=== PATIENT | female | born 1955 | race Caucasian/White ===

== ENCOUNTER → 2017-02-18 | Outpatient (CLI) | payer BC ==
[~2017-02-18] MED LIST: ACT30 PO; ASCA500 PO; ASPEC325 PO; ATOR10TA82 PO; CALC500C70 PO; CLX20 PO; GLC/500 PO; HYDRALAZINE PO; LISI-787 PO; LISI20TA PO; METO100T44 PO; MULT-190 PO; MULT-506 PO; SYN50 PO
--- NOTE | 2017-02-18 16:39 | MAMMOGRAPHY REPORT ---
BILATERAL DIGITAL SCREENING MAMMOGRAM WITH CAD: 02/18/2017 CLINICAL HISTORY: Routine screening. Patient has no complaints. TECHNIQUE: Bilateral CC and MLO views were obtained. Current study was also evaluated with a Comput er Aided Detection (CAD) system. COMPARISON: Comparison is made to exams dated: 02/13/2016 mammogram, 02/09/2015 mammogram, 02/08/2014 mammogram, 01/04/2013 mammogram, 01/03/2012 mammogram, and 01/02/2011 mammogram - [facility]. BREAST COMPOSITION: The tissue of both breasts is almost entirely fatty. FINDINGS: There are stable, benign appearing calcifications in both breasts. No suspicious mass, architectural distortion or cluster of microcalcifications is seen. IMPRESSION: ACR BI-RADS CATEGORY 2: BENIGN There is no mammographic evidence of malignancy. A 1 year screening mammogram is recommended. The p atient will receive written notification of the results. Approximately 10% of breast cancers are not detected with mammography. A negative mammographic repor t should not delay biopsy if a clinically suggestive mass is present. Marcia Gagnon M.D. ay/:02/18/2017 16:26:48 Market Maker: Hailey ZAMBRANO(R)(M), [facility] letter sent: Normal 1/2 BI-RADS Code: ACR BI-RADS Category 2: Benign
== END | disposition home or self-care (01) ==
LOC: C.MAMM 16:12
PROVIDERS: ATTEND Internal Medicine Adolescent Medicine
DX: Z12.31 Encounter for screening mammogram for malignant neoplasm of breast (principal)

== ENCOUNTER 2017-03-04 15:15 | Emergency (ER) | payer BC ==
[~2017-03-04] VITALS: Ht 157.5 cm; Wt 91.3 kg
[~2017-03-04 15:15] MED LIST changes: -ASCA500 PO; -CALC500C70 PO; -GLC/500 PO; -HYDRALAZINE PO; -LISI-787 PO; -MULT-190 PO
[2017-03-04 15:23] VITALS: TEMP 37.3; Ht 157.5 cm; Wt 91.3 kg
[2017-03-04] MEDS ORDERED: SODIUM CHLORIDE 0.9% 1000ML 1,000 ML IV STA (15:48)
[2017-03-04 16:07] LABS: BASO % 0.2 %; BASO ABS # 0.02 K/uL (0-0.2); COMPLETE YES; EOS % 2.8 %; HEMATOCRIT 40.4 % (37-47); IG% 0.2 %; LYMPH ABS # 1.94 K/uL (1.2-3.4); MEAN CELL VOLUME 87.8 fL (80-100); MEAN CORPUSCULAR HEMOGLOBIN 29.8 pg (25-34); MEAN CORPUSCULAR HGB CONC 33.9 g/dl (32-36); MEAN PLATELET VOLUME 9.5 fL (7.4-10.4); MONO % 8.7 %; NEUT % 66.1 %; PLATELET COUNT 187 K/uL (130-400); WHITE BLOOD COUNT 8.81 K/uL (4.8-10.8)
--- NOTE | 2017-03-04 16:17 | DIAGNOSTIC IMAGING REPORT ---
CHEST ONE VIEW PORTABLE CLINICAL HISTORY: Altered mental status. Weakness. COMPARISON STUDY: 08/19/2009 FINDINGS: The cardiac and mediastinal contours are normal. There is no evidence of focal pulmonary consolidation. There is no evidence of failure. No pleural effusions are visualized.[ IMPRESSION: No active disease in the chest. Electronically signed by: Marvin Dozier M.D. 03/04/2017 4:15 PM Dictated Date/Time: 03/04/2017 4:09 PM
[2017-03-04 16:32] LABS: PARTIAL THROMBOPLASTIN RATIO 1.3; PROTHROMBIN TIME (PATIENT) 10.7 SECONDS (9.0-12.0)
--- NOTE | 2017-03-04 16:55 | DIAGNOSTIC IMAGING REPORT ---
CT SCAN OF THE BRAIN WITHOUT IV CONTRAST CLINICAL HISTORY: Change in mental status. Weakness. Syncope. COMPARISON STUDY: No priors. TECHNIQUE: Unenhanced axial CT scan of the brain is performed from the vertex to the skull base. Automated dose control exposure was utilized. FINDINGS: Brain parenchyma: There is significant edema identified in the left hemisphere centered in the left temporal lobe. The overlying cortex appears preserved. This effaces the overlying cortical sulci. No midline shift is apparent. There is no hemorrhage. No additional foci of abnormality are identified. No extra-axial fluid collection is seen. Ventricles, sulci, cisterns: See above. Intracranial vasculature: There is atherosclerotic calcification of the cavernous carotid arteries. Calvarium: A tiny osteoma arises from the right frontal calvarium. No destructive calvarial lesion is seen. Sinuses and mastoids: The visualized paranasal sinuses are clear. The mastoid air cells are well pneumatized. Orbits: The bony orbits are grossly intact. IMPRESSION: 1. There is a large region of edema centered in the left temporal lobe with mild surrounding mass effect. Although this could represent subacute ischemia, the overlying cortex appears preserved and the appearance is more concerning for an underlying mass lesion. Correlation with a contrast-enhanced MRI of the brain is recommended for further assessment. 2. There is no hemorrhage or midline shift. No additional foci of abnormality are identified. Electronically signed by: Juan Sanchez M.D. 03/04/2017 4:52 PM Dictated Date/Time: 03/04/2017 4:48 PM
[2017-03-04 16:56] LABS: ALKALINE PHOSPHATASE 126 U/L (45-117); ALT/SGPT 29 U/L (12-78); AST/SGOT 18 U/L (15-37); BLOOD UREA NITROGEN 21 mg/dl (7-18); BUN/CREATININE RATIO 19.4 (10-20); CARBON DIOXIDE 35 mmol/L (21-32); CHLORIDE 91 mmol/L (98-107); CKMB/CK RATIO 1.4 (0-3.0); GLUCOSE 115 mg/dl (70-99); MAGNESIUM 2.4 mg/dl (1.8-2.4); POTASSIUM 3.3 mmol/L (3.5-5.1); SODIUM 132 mmol/L (136-145)
[2017-03-04] MEDS ORDERED: SYN50 PO (16:58)
[2017-03-04] MEDS ORDERED: LISI-787 PO (16:58)
[2017-03-04] MEDS ORDERED: CALC500C70 PO (16:59)
[2017-03-04] MEDS ORDERED: MULT-190 PO (16:59)
[2017-03-04] MEDS ORDERED: ASCA500 PO (16:59)
[2017-03-04] MEDS ORDERED: GLC/500 PO (17:01)
[2017-03-04] MEDS ORDERED: HYDRALAZINE PO (17:01)
--- NOTE | 2017-03-04 18:00 | DIAGNOSTIC IMAGING REPORT ---
CT SCAN OF THE PARANASAL SINUSES CLINICAL HISTORY: Head pressure. COMPARISON STUDY: CT of the brain performed concurrently on 03/04/2017. TECHNIQUE: High-resolution CT scan of the paranasal sinuses is performed. Images are reviewed in the axial, sagittal, and coronal planes. IV contrast was not administered for this examination. FINDINGS: Maxillary antra: There are bony defects identified within the medial wall of the maxillary antra bilaterally, which could be on a congenital postoperative basis. Both maxillary antra are clear. Incomplete bony septations are present within the bilateral maxillary antra anteriorly. Anterior ethmoid sinuses: Clear. Posterior ethmoid sinuses: Trace mucosal thickening is seen on the right. Clear on the left. Sphenoid sinuses: Clear. Frontal sinuses: Trace mucosal thickening is seen bilaterally. Ostiomeatal complexes: Patent bilaterally. Frontoethmoidal and sphenoethmoidal recesses: Patent bilaterally. Carotid arteries: The carotid arteries are protuberant but covered and without septal attachments. Ethmoid roofs: The ethmoid roofs are symmetric. Nasal turbinates: Normal in appearance. Nasal septum: There is mild rightward deviation of the bony nasal septum. Optic nerves: Covered. Orbits: There is contour deformity of the medial wall of the right orbit, possibly related to remote lamina papyracea fracture. The bony orbits are otherwise intact. Orbital contents are normal in appearance. Calvarium: The imaged calvarium is normal in appearance Mastoid air cells: Well pneumatized. Brain parenchyma: There is edema identified within the left temporal lobe. IMPRESSION: 1. No significant paranasal sinus disease. See above. 2. There is edema identified within the left temporal lobe. See report of CT scan of the brain performed concurrently for detailed intracranial findings. Electronically signed by: Juan Sanchez M.D. 03/04/2017 5:58 PM Dictated Date/Time: 03/04/2017 5:54 PM
[2017-03-04] MEDS ORDERED: LORAZEPAM 2 MG/ML 1 ML VIAL IV STA (18:32)
--- NOTE | 2017-03-04 20:57 | DIAGNOSTIC IMAGING REPORT ---
MRI OF THE BRAIN COMBO CLINICAL HISTORY: Abnormal CT scan. Concern for left temporal lobe mass. Change in mental status. Syncope. COMPARISON STUDY: CT of the brain dated 03/04/2017. TECHNIQUE: MRI of the brain was performed utilizing various T1 and T2-weighted sequences in the axial, sagittal, and coronal planes. Contrast-enhanced sequences were acquired following the administration of 9 cc of Gadavist. The examination is degraded by motion artifact. FINDINGS: Brain parenchyma: There is a 2.3 x 3.4 x 2.0 cm complex mass lesion containing cystic components identified within the medial right temporal lobe. This demonstrates a thick peripheral rim of enhancement, and there is significant stranding vasogenic edema. No restricted diffusion is identified within this lesion. There is no [id number] midline shift. Edema effaces the adjacent cortical sulci. No additional enhancing lesions are identified. There is no hemorrhage. There is no restricted diffusion typical for acute ischemia. There is minimal subcortical and periventricular microangiopathic disease. No extra-axial fluid collection is seen. The cerebellar tonsils are normal in configuration. Ventricles, sulci, and cisterns: Normal in configuration. See above. Pituitary and sella: Unremarkable. Intracranial vasculature: Normal flow voids are maintained at the skull base. Orbits: The bony orbits are grossly intact. Orbital contents are normal in appearance. Sinuses and mastoids: Clear. Calvarium: Unremarkable. Cervical cord: Partially visualized cervical spinal cord is normal in morphology and signal intensity. IMPRESSION: 1. MRI confirms the presence of a peripherally enhancing mass lesion identified in the medial left temporal lobe with surrounding vasogenic edema. This corresponds to the abnormality seen by CT, an the appearance is highly concerning for neoplasm. 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 Abscess is considered unlikely given the lack of restricted diffusion. 2. No additional enhancing lesions are identified. 3. There is no hemorrhage or evidence of acute ischemia. Electronically signed by: Juan Sanchez M.D. 03/04/2017 8:55 PM Dictated Date/Time: 03/04/2017 8:48 PM
[2017-03-04] MEDS ORDERED: GADAVIST IV PRN (21:00)
[2017-03-04 21:43] VITALS: BP 151/81; PULSE 69; O2SAT 98
--- NOTE | 2017-03-04 22:31 | EMERGENCY ROOM VISIT NOTE ---
History Report prepared by Ratna: Phil Nunez Under the Supervision of: Dr. Que Christine D.O. 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 Pt called for help from staff, had near syncopal episiode. Pt currently having none of these symptoms at this time besides a headache. PMH: DM, HTN, heart condition (patient unsure) Family: Stroke History of Present Illness The patient is a 61 year old female who presents to the Emergency Room with complaints of persistent confusion beginning about 1 hour ago. She notes she started feeling "odd" which is unusual for her. She notes feeling somewhat nauseated earlier today. She had a sinus infection over a week ago, and has been taking Mucinex. She took 2 Mucinex this morning around 0600, and 2 at noon , which seem to be working, and she reports keeping up with her fluids. The patient had been given Zithromax for her recent sinus infection which she finished last week. She notes she is still having some sinus discomfort. She takes medication for diabetes and hypertension . Source of History: patient Onset: about 1 hour ago Position: head Quality: other (confusion) Timing: other (persistent) Associated Symptoms: + nausea Note: The patient notes having some sinus discomfort. Review of Systems See HPI for pertinent positives & negatives. A total of 10 systems reviewed and were otherwise negative. Past Medical & Surgical Medical Problems: (1) History of CHF (congestive heart failure) (2) History of diabetes mellitus (3) History of hypertension Family History Diabetes mellitus Social History Smoking Status: Never Smoker Marital Status: Occupation Status: employed Current/Historical Medications Scheduled Ascorbic Acid (Vitamin C), 500 MG PO DAILY Aspirin Enteric Coated (Ecotrin Or Generic *), 325 MG PO DAILY Atorvastatin (Lipitor), 10 MG PO DAILY Calcium/Vitamin D (Os-Clifford 500 Plus D), 1 TAB PO DAILY Citalopram (Celexa *), 20 MG PO DAILY Levothyroxine Sodium (Synthroid), 50 MCG PO QAM Lisinopril/Hctz (Zestoretic 20MG/12.5MG), 1 TAB PO DAILY Metformin Hcl (Glucophage), 1,000 MG PO DAILY Metoprolol Succ (Toprol Xl) (Toprol-Xl ), 100 MG PO DAILY Ocuvite Preservision (Ocuvite Preservision), 1 TAB PO DAILY [Hydralazine], 1 TAB PO TID Allergies Coded Allergies: Cefaclor (Unverified Allergy, Unknown, DIARRHEA, 03/04/17) Physical Exam Vital Signs Date Time Temp Pulse Resp B/P Pulse Ox O2 Delivery O2 Flow Rate FiO2 03/04/17 21:43 69 18 151/81 98 Room Air 03/04/17 19:30 60 18 97 Room Air 03/04/17 19:07 158/81 03/04/17 19:00 59 15 94 03/04/17 17:45 61 20 158/81 97 Room Air 03/04/17 16:09 61 03/04/17 15:23 37.3 66 18 177/91 99 Room Air Physical Exam CONSTITUTIONAL/VITAL SIGNS: Reviewed / noted above. GENERAL: Non-toxic in appearance. INTEGUMENTARY: Warm, dry, and [place]. HEAD: Normocephalic. EYES: without scleral icterus or trauma. ENT/OROPHARYNX: clear and moist. LYMPHADENOPATHY/NECK: Is supple without lymphadenopathy or meningismus. RESPIRATORY: Lungs clear and equal. CARDIOVASCULAR: Regular rate and rhythm. GI/ABDOMEN: Soft and nontender. No organomegaly or pulsatile mass. No rebound or guarding. Normal bowel sounds. EXTREMITIES: Warm and well perfused. BACK: No CVA tenderness. NEUROLOGICAL: Intact without focal deficits. PSYCHIATRIC: normal affect. MUSCULOSKELETAL: Normally developed with good muscle tone. Medical Decision & Procedures ER Provider Diagnostic Interpretation: Radiology results as stated below per my review and radiologist interpretation: CT SCAN OF THE BRAIN WITHOUT IV CONTRAST FINDINGS: Brain parenchyma: There is significant edema identified in the left hemisphere centered in the left temporal lobe. The overlying cortex appears preserved. This effaces the overlying cortical sulci. No midline shift is apparent. There is no hemorrhage. No additional foci of abnormality are identified. No extra-axial fluid collection is seen. Ventricles, sulci, cisterns: See above. Intracranial vasculature: There is atherosclerotic calcification of the cavernous carotid arteries. Calvarium: A tiny osteoma arises from the right frontal calvarium. No destructive calvarial lesion is seen. Sinuses and mastoids: The visualized paranasal sinuses are clear. The mastoid air cells are well pneumatized. Orbits: The bony orbits are grossly intact. IMPRESSION: 1. There is a large region of edema centered in the left temporal lobe with mild surrounding mass effect. Although this could represent subacute ischemia, the overlying cortex appears preserved and the appearance is more concerning for an underlying mass lesion. Correlation with a contrast-enhanced MRI of the brain is recommended for further assessment. 2. There is no hemorrhage or midline shift. No additional foci of abnormality are identified. Electronically signed by: Juan Sanchez M.D. 03/04/2017 4:52 PM Dictated Date/Time: 03/04/2017 4:[address] SCAN OF THE PARANASAL SINUSES FINDINGS: Maxillary antra: There are bony defects identified within the medial wall of the maxillary antra bilaterally, which could be on a congenital postoperative basis. Both maxillary antra are clear. Incomplete bony septations are present within the bilateral maxillary antra anteriorly. Anterior ethmoid sinuses: Clear. Posterior ethmoid sinuses: Trace mucosal thickening is seen on the right. Clear on the left. Sphenoid sinuses: Clear. Frontal sinuses: Trace mucosal thickening is seen bilaterally. Ostiomeatal complexes: Patent bilaterally. Frontoethmoidal and sphenoethmoidal recesses: Patent bilaterally. Carotid arteries: The carotid arteries are protuberant but covered and without septal attachments. Ethmoid roofs: The ethmoid roofs are symmetric. Nasal turbinates: Normal in appearance. Nasal septum: There is mild rightward deviation of the bony nasal septum. Optic nerves: Covered. Orbits: There is contour deformity of the medial wall of the right orbit, possibly related to remote lamina papyracea fracture. The bony orbits are otherwise intact. Orbital contents are normal in appearance. Calvarium: The imaged calvarium is normal in appearance Mastoid air cells: Well pneumatized. Brain parenchyma: There is edema identified within the left temporal lobe. IMPRESSION: 1. No significant paranasal sinus disease. See above. 2. There is edema identified within the left temporal lobe. See report of CT scan of the brain performed concurrently for detailed intracranial findings. Electronically signed by: Juan Sanchez M.D. 03/04/2017 5:58 PM Dictated Date/Time: 03/04/2017 5:54 PM CHEST ONE VIEW PORTABLE FINDINGS: The cardiac and mediastinal contours are normal. There is no evidence of focal pulmonary consolidation. There is no evidence of failure. No pleural effusions are visualized. IMPRESSION: No active disease in the chest. Electronically signed by: Marvin Dozier M.D. 03/04/2017 4:15 PM Dictated Date/Time: 03/04/2017 4:09 PM MRI OF THE BRAIN COMBO FINDINGS: Brain parenchyma: There is a 2.3 x 3.4 x 2.0 cm complex mass lesion containing cystic components identified within the medial right temporal lobe. This demonstrates a thick peripheral rim of enhancement, and there is significant stranding vasogenic edema. No restricted diffusion is identified within this lesion. There is no [id number]-[id number] midline shift. Edema effaces the adjacent cortical sulci. No additional enhancing lesions are identified. There is no hemorrhage. There is no restricted diffusion typical for acute ischemia. There is minimal subcortical and periventricular microangiopathic disease. No extra-axial fluid collection is seen. The cerebellar tonsils are normal in configuration. Ventricles, sulci, and cisterns: Normal in configuration. See above. Pituitary and sella: Unremarkable. Intracranial vasculature: Normal flow voids are maintained at the skull base. Orbits: The bony orbits are grossly intact. Orbital contents are normal in appearance. Sinuses and mastoids: Clear. Calvarium: Unremarkable. Cervical cord: Partially visualized cervical spinal cord is normal in morphology and signal intensity. IMPRESSION: 1. MRI confirms the presence of a peripherally enhancing mass lesion identified in the medial left temporal lobe with surrounding vasogenic edema. This corresponds to the abnormality seen by CT, an the appearance is highly concerning for neoplasm. 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 Abscess is considered unlikely given the lack of restricted diffusion. 2. No additional enhancing lesions are identified. 3. There is no hemorrhage or evidence of acute ischemia. Electronically signed by: Juan Sanchez M.D. 03/04/2017 8:55 PM Dictated Date/Time: 03/04/2017 8:48 PM Laboratory Results 03/04/17 15:56 Red Blood Count 4.60, Mean Corpuscular Volume 87.8, Mean Corpuscular Hemoglobin 29.8, Mean Corpuscular Hemoglobin Concent 33.9, Mean Platelet Volume 9.5, Neutrophils (%) (Auto) 66.1, Lymphocytes (%) (Auto) 22.0, Monocytes (%) (Auto) 8.7, Eosinophils (%) (Auto) 2.8, Basophils (%) (Auto) 0.2, Neutrophils # (Auto) 5.81, Lymphocytes # (Auto) 1.94, Monocytes # (Auto) 0.77, Eosinophils # (Auto) 0.25, Basophils # (Auto) 0.02 03/04/17 15:56 Test 03/04/17 15:56 White Blood Count 8.81 K/uL (4.8-10.8) Red Blood Count 4.60 M/uL (4.2-5.4) Hemoglobin 13.7 g/dL (12.0-16.0) Hematocrit 40.4 % (37-47) Mean Corpuscular Volume 87.8 fL (80-100) Mean Corpuscular Hemoglobin 29.8 pg (25-34) Mean Corpuscular Hemoglobin Concent 33.9 g/dl (32-36) Platelet Count 187 K/uL (130-400) Mean Platelet Volume 9.5 fL (7.4-10.4) Neutrophils (%) (Auto) 66.1 % Lymphocytes (%) (Auto) 22.0 % Monocytes (%) (Auto) 8.7 % Eosinophils (%) (Auto) 2.8 % Basophils (%) (Auto) 0.2 % Neutrophils # (Auto) 5.81 K/uL (1.4-6.5) Lymphocytes # (Auto) 1.94 K/uL (1.2-3.4) Monocytes # (Auto) 0.77 K/uL (0.11-0.59) Eosinophils # (Auto) 0.25 K/uL (0-0.5) Basophils # (Auto) 0.02 K/uL (0-0.2) RDW Standard Deviation 43.2 fL (36.4-46.3) RDW Coefficient of Variation 13.4 % (11.5-14.5) Immature Granulocyte % (Auto) 0.2 % Immature Granulocyte # (Auto) 0.02 K/uL (0.00-0.02) Prothrombin Time 10.7 SECONDS (9.0-12.0) Prothromb Time International Ratio 1.0 (0.9-1.1) Activated Partial Thromboplast Time 33.4 SECONDS (21.0-31.0) Partial Thromboplastin Ratio 1.3 Anion Gap 6.0 mmol/L (3-11) Est Creatinine Clear Calc Drug Dose 56.5 ml/min Estimated GFR () 62.8 Estimated GFR (Non- 54.1 BUN/Creatinine Ratio 19.4 (10-20) Calcium Level 9.0 mg/dl (8.5-10.1) Magnesium Level 2.4 mg/dl (1.8-2.4) Total Bilirubin 0.4 mg/dl (0.2-1) Direct Bilirubin 0.1 mg/dl (0-0.2) Aspartate Amino Transf (AST/SGOT) 18 U/L (15-37) Alanine Aminotransferase (ALT/SGPT) 29 U/L (12-78) Alkaline Phosphatase 126 U/L (45-117) Total Creatine Kinase 145 U/L (26-192) Creatine Kinase MB 2.1 ng/ml (0.5-3.6) Creatine Kinase MB Ratio 1.4 (0-3.0) Troponin I < 0.015 ng/ml (0-0.045) Total Protein 7.4 gm/dl (6.4-8.2) Albumin 4.1 gm/dl (3.4-5.0) Lipase 330 U/L (73-393) Thyroid Stimulating Hormone (TSH) 3.960 uIu/ml (0.300-4.500) Laboratory results as stated above per my review. Medications Administered Medications (Trade) Dose Ordered Sig/Nabil Route Start Time Stop Time Status Last Admin Dose Admin Sodium Chloride (Nss 1000ml) 1,000 ml @ 999 mls/hr Q1H1M STAT IV 03/04/17 15:48 03/04/17 16:48 DC 03/04/17 16:11 999 MLS/HR Lorazepam (Ativan Inj) 2 mg NOW STAT IV 03/04/17 18:32 03/04/17 18:33 DC 03/04/17 18:45 2 MG ECG Indication: other (confusion) Rate (beats per minute): 59 Rhythm: sinus rhythm Findings: no acute ischemic change, no ectopy ED Course 1544: Previous medical records were reviewed. The patient was evaluated in room C10. A complete history and physical examination was performed. 1548: Ordered NSS 1,000 ml @ 999 mls/hr IV. 1832: Ordered Ativan Inj 2 mg IV. 2100: Ordered Gadobutrol 9 mmol IV. 2135: Discussed the patient's case with Dr. Payne. The patient will be transported to [facility] for further evaluation. Medical Decision Differential includes acute coronary syndrome, myocardial infarction, CVA, TIA, anemia, infection, pneumonia, UTI, pyelonephritis, poor nutrition, dehydration, electrolyte disturbance,hypoglycemia. This is a 61-year-old female who presents to the ED with a chief complaint of an odd feeling that she is unable to describe. It started around 2:30 today. She states that she recently has had a sinus infection for the past week and has been on Zithromax. She finished this course. She took some Mucinex twice today. The last dose was around 12:30 PM. She states that she does feel little better than she did earlier but is not completely back to normal. The patient denies any specific complaints. She has no focal weakness. She does complain of a slight headache. He denies any nausea vomiting. Her chest pains or shortness of breath. The general exam and neuro exam did not show any obvious deficits. Chest x-ray did not show acute disease. A CT scan of the brain reveals some left temporal lobe edema with mild mass effect. EKG shows a sinus rhythm at a rate of 59 without acute injury or ectopy. CBC is normal. Potassium was 3.3. BUN is 21. Troponin is negative. TSH was normal. The patient was treated with Ativan 2 mg IV in preparation of MRI. She is also given IV fluids. 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 I spoke with Dr. Payne from [facility]. The patient has been accepted in transfer there. Patient, per request, will be transported by private vehicle by the . Consults Time Called: 2129 Consulting Physician: Dr. Payne [facility] Returned Call: [phone] Discussed the patient's case with Dr. Payne. Impression Primary Impression: Brain tumor Scribe Attestation The scribe's documentation has been prepared under my direction and personally reviewed by me in its entirety. I confirm that the note above accurately reflects all work, treatment, procedures, and medical decision making performed by me. Departure Information Dispostion Transfer Acute Care Facility Referrals Paul Hicks M.D. (PCP) Patient Instructions My [facility] Additional Instructions Go To [facility] for evaluation by Dr. Payne from neurosurgery. Room
== END 2017-03-04 22:59 | disposition short-term general hospital (02) ==
LOC: EDBD 15:15 → C.EDC 15:17
DX: D49.6 Neoplasm of unspecified behavior of brain (principal); I10 Essential (primary) hypertension; E11.9 Type 2 diabetes mellitus without complications; I50.9 Heart failure, unspecified; Z79.82 Long term (current) use of aspirin; Z79.899 Other long term (current) drug therapy; Z88.8 Allergy status to other drugs, medicaments and biological substances; Z83.3 Family history of diabetes mellitus

== ENCOUNTER → 2018-02-23 | Outpatient (CLI) | payer OTHER ==
[~2018-02-23] MED LIST changes: -ACT30 PO; +ASCA500 PO; +CALC500C70 PO; +GLC/500 PO; +HYDRALAZINE PO; +LISI-787 PO; -LISI20TA PO; +MULT-190 PO; -MULT-506 PO
--- NOTE | 2018-02-24 07:41 | MAMMOGRAPHY REPORT ---
BILATERAL DIGITAL SCREENING MAMMOGRAM TOMOSYNTHESIS WITH CAD: 02/23/2018 CLINICAL HISTORY: Routine screening. Patient has no complaints. TECHNIQUE: Breast tomosynthesis in addition to standard 2D mammography was performed. Current study was also evaluated with a Computer Aided Detection (CAD) system. COMPARISON: Comparison is made to exams dated: 02/18/2017 mammogram, 02/13/2016 mammogram, 02/09/2015 ma mmogram, 02/08/2014 mammogram, 01/04/2013 mammogram, and 01/03/2012 mammogram - [facility]ter. BREAST COMPOSITION: The tissue of both breasts is almost entirely fatty. FINDINGS: The parenchymal pattern is unchanged. No developing mass, architectural distortion or clus ter of suspicious microcalcifications is seen in either breast. IMPRESSION: ACR BI-RADS CATEGORY 2: BENIGN There is no mammographic evidence of malignancy. A 1 year screening mammogram is recommended. The pa tient will receive written notification of the results. Approximately 10% of breast cancers are not detected with mammography. A negative mammographic report should not delay biopsy if a clinically suggestive mass is present. Marcia Gagnon M.D. ay/:02/23/2018 17:04:21 Bench Lathe Operator: Katherin ZAMBRANO(Analilia)(M), [facility] letter sent: Normal 1/2 BI-RADS Code: ACR BI-RADS Category 2: Benign
== END | disposition home or self-care (01) ==
LOC: C.MAMM 16:30
PROVIDERS: ATTEND Internal Medicine Adolescent Medicine
DX: Z12.31 Encounter for screening mammogram for malignant neoplasm of breast (principal)